=== PATIENT | female | born 1970 | race Caucasian/White ===

== ENCOUNTER 2018-01-10 00:53 | Emergency (ER) | payer OTHER ==
[2018-01-10 01:20] VITALS: BP 170/102; PULSE 90; RESP 18; TEMP 98.1; O2SAT 100
[2018-01-10 02:28] LABS: AUTOMATED NEUTROPHIL # 4.5 TH/MM3 (1.8-7.7); BASOPHIL # 0.1 TH/MM3 (0-0.2); BASOPHIL % 1.3 % (0.0-2.0); EOSINOPHIL # 0.3 TH/MM3 (0-0.4); EOSINOPHIL % 4.3 % (0.0-4.0); HEMATOCRIT 45.8 % (35.0-46.0); HEMOGLOBIN 16.4 GM/DL (11.6-15.3); LYMPH % 28.9 % (9.0-44.0); LYMPHOCYTE # 2.1 TH/MM3 (1.0-4.8); MEAN CELL VOLUME 104.3 FL (80.0-100.0); MEAN CORPUSCULAR HEMOGLOBIN 37.4 PG (27.0-34.0); MEAN CORPUSCULAR HGB CONC 35.9 % (32.0-36.0); MEAN PLATELET VOLUME 5.9 FL (7.0-11.0); MONO % 5.2 % (0.0-8.0); MONOCYTE # 0.4 TH/MM3 (0-0.9); NEUT % 60.3 % (16.0-70.0); PLATELET COUNT 358 TH/MM3 (150-450); RED BLOOD COUNT 4.39 MIL/MM3 (4.00-5.30); RED CELL DISTRIBUTION WIDTH 14.4 % (11.6-17.2); WHITE BLOOD COUNT 7.4 TH/MM3 (4.0-11.0)
[2018-01-10 02:32] LABS: ALBUMIN 4.1 GM/DL (3.4-5.0); ALKALINE PHOSPHATASE 97 U/L (45-117); ALT (GPT) 35 U/L (10-53); AST (GOT) 45 U/L (15-37); BLOOD UREA NITROGEN 5 MG/DL (7-18); CALCIUM 8.3 MG/DL (8.5-10.1); CHLORIDE 101 MEQ/L (98-107); CREATININE 0.77 MG/DL (0.50-1.00); GLOMERULAR FILTRATION RATE 80 ML/MIN (>89); GLUCOSE,RANDOM 99 MG/DL (74-106); SODIUM (NA) 133 MEQ/L (136-145); TOTAL BILIRUBIN ADULT 0.4 MG/DL (0.2-1.0); TOTAL PROTEIN 8.6 GM/DL (6.4-8.2)
[2018-01-10 02:34] LABS: ACETAMINOPHEN LESS THAN 2.0 MCG/ML (10.0-30.0)
[2018-01-10 02:54] LABS: BACTERIA, URINE OCC /hpf; BILIRUBIN, URINE NEG (NEG); BLOOD, URINE TRACE (NEG); GLUCOSE,URINE NEG (NEG); HYALINE CAST, URINE 1 /lpf (RARE); KETONE, URINE NEG (NEG); MUCUS URINE FEW /lpf (OCC); NITRITE,URINE NEG (NEG); SQUAMOUS EPITHELIAL CELL URINE 4 /hpf (0-5); URINE COLOR YELLOW (YELLW/STRAW); URINE LEUKOCYTE ESTERASE LARGE (NEG); WHITE BLOOD CELL CLUMPS MOD
[2018-01-10] MEDS ORDERED: POTA-163 PO (02:55)
[2018-01-10] MEDS ORDERED: LOSA25TA PO (02:55)
[2018-01-10] MEDS ORDERED: FURO20TA PO (02:55)
[2018-01-10] MEDS ORDERED: DIAZ2 PO (02:55)
[2018-01-10] MEDS ORDERED: CEPH-460 PO (03:15)
[2018-01-10] MEDS ORDERED: CEPHALEXIN MONOHYDRATE 500 MG CAP PO ONE (03:15)
--- NOTE | 2018-01-10 03:15 | PD ---
HPI Chief Complaint: Psychiatric Symptoms Time Seen by Provider: 02:47 Travel History International Travel<30 days: No Contact w/Intl Traveler<30days: No Traveled to known affect area: No History of Present Illness HPI Patient is a 47-year-old female presenting to the emergency department under James act for psychiatric evaluation. Per the James act report patient reported in a text message that she was "going to take a turn of pills". Patient reports that she got into an argument with her boyfriend and made that statement however she denies suicidality or previous suicide attempt. Patient further denies any depression, hallucinations, homicidal ideations. She does report a history of anxiety and hypertension. Symptom onset was sudden, symptoms are exacerbated by the argument, severity is moderate. There are no alleviating factors. Patient denies any physical pain at this time. She does endorse daily tobacco use and occasional EtOH use. PFSH Past Medical History Anxiety: Yes Heart Rhythm Problems: Yes Cardiovascular Problems: Yes Musculoskeletal: Yes ?: Not Past Surgical History Abdominal Surgery: No Body Medical Devices: BREAST IMPLANTS Cardiac Surgery: No Ear Surgery: No Endocrine Surgery: No Eye Surgery: No Genitourinary Surgery: No Gynecologic Surgery: No Hysterectomy: Yes Oral Surgery: No Thoracic Surgery: Yes (2005 BREAST IMPLANT) Other Surgery: Yes (1988 r KNEE ARTHROSCOPY, 2005 BREAST IMPLANTS) Social History Alcohol Use: Yes (WINE WITH DINNER OR SOCIAL OCCATIONS) Tobacco Use: Yes (1/2 PPD) Substance Use: No Allergies-Medications (Allergen,Severity, Reaction): Coded Allergies: shellfish derived (Unverified Allergy, Mild, Rash, 01/10/18) Reported Meds & Prescriptions Reported Meds & Active Scripts Active Reported Valium (Diazepam) 2 Mg Tab 2 Mg PO BID PRN Potassium Chloride ER (Potassium Chloride) 20 Meq Tab 20 Meq PO DAILY Furosemide 20 Mg Tab 20 Mg PO DAILY Losartan (Losartan Potassium) 25 Mg Tab 25 Mg PO DAILY Review of Systems Except as stated in HPI: all other systems reviewed are Neg Psychiatric: Positive: Anxiety, Depression, Suicidal Ideations Physical Exam Narrative GENERAL: Well-developed, well-nourished, alert female. Presenting in no acute distress. SKIN: Warm and dry. HEAD: Atraumatic. Normocephalic. EYES: Pupils equal and round. No scleral icterus. No injection or drainage. ENT: No nasal bleeding or discharge. Mucous membranes pink and moist. NECK: Trachea midline. No JVD. CARDIOVASCULAR: Regular rate and rhythm. RESPIRATORY: No accessory muscle use. Clear to auscultation. Breath sounds equal bilaterally. GASTROINTESTINAL: Abdomen soft, non-tender, nondistended. Hepatic and splenic margins not palpable. MUSCULOSKELETAL: Extremities without clubbing, cyanosis, or edema. No obvious deformities. NEUROLOGICAL: Awake and alert. No obvious cranial nerve deficits. Motor grossly within normal limits. Five out of 5 muscle strength in the arms and legs. Normal speech. PSYCHIATRIC: Depressed mood and flat affect; insight and judgment normal. Data Data Last Documented VS Vital Signs Date Time Temp Pulse Resp B/P (MAP) Pulse Ox O2 Delivery O2 Flow Rate FiO2 01/10/18 01:20 98.1 90 18 170/102 (124) 100 Orders Orders Complete Blood Count With Diff (01/10/18 00:57) Comprehensive Metabolic Panel (01/10/18 00:57) Thyroid Stimulating Hormone (01/10/18 00:57) Urinalysis - C+S If Indicated (01/10/18 00:57) Psych Screen (01/10/18 00:57) Drug Screen, Random Urine (01/10/18 00:57) Alcohol (Ethanol) (01/10/18 00:57) Salicylates (Aspirin) (01/10/18 00:57) Tylenol (Acetaminophen) (01/10/18 00:57) Urine Culture (01/10/18 01:20) Labs Laboratory Tests Test 01/10/18 00:57 01/10/18 01:20 01/10/18 01:25 Urine Opiates Screen NEG Urine Barbiturates Screen NEG Urine Amphetamines Screen NEG Urine Benzodiazepines Screen NEG Urine Cocaine Screen NEG Urine Cannabinoids Screen NEG Urine Color YELLOW Urine Turbidity HAZY Urine pH 5.0 Urine Specific [place] 1.005 Urine Protein TRACE mg/dL Urine Glucose (UA) NEG mg/dL Urine Ketones NEG mg/dL Urine Occult Blood TRACE Urine Nitrite NEG Urine Bilirubin NEG Urine Urobilinogen LESS THAN 2.0 MG/DL Urine Leukocyte Esterase LARGE Urine RBC 3 /hpf Urine WBC 37 /hpf Urine WBC Clumps MOD Urine Squamous Epithelial Cells 4 /hpf Urine Bacteria OCC /hpf Urine Hyaline Casts 1 /lpf Urine Mucus FEW /lpf Microscopic Urinalysis Comment CULTURE INDICATED White Blood Count 7.4 TH/MM3 Red Blood Count 4.39 MIL/MM3 Hemoglobin 16.4 GM/DL Hematocrit 45.8 % Mean Corpuscular Volume 104.3 FL Mean Corpuscular Hemoglobin 37.4 PG Mean Corpuscular Hemoglobin Concent 35.9 % Red Cell Distribution Width 14.4 % Platelet Count 358 TH/MM3 Mean Platelet Volume 5.9 FL Neutrophils (%) (Auto) 60.3 % Lymphocytes (%) (Auto) 28.9 % Monocytes (%) (Auto) 5.2 % Eosinophils (%) (Auto) 4.3 % Basophils (%) (Auto) 1.3 % Neutrophils # (Auto) 4.5 TH/MM3 Lymphocytes # (Auto) 2.1 TH/MM3 Monocytes # (Auto) 0.4 TH/MM3 Eosinophils # (Auto) 0.3 TH/MM3 Basophils # (Auto) 0.1 TH/MM3 CBC Comment DIFF FINAL Differential Comment Blood Urea Nitrogen 5 MG/DL Creatinine 0.77 MG/DL Random Glucose 99 MG/DL Total Protein 8.6 GM/DL Albumin 4.1 GM/DL Calcium Level 8.3 MG/DL Alkaline Phosphatase 97 U/L Aspartate Amino Transf (AST/SGOT) 45 U/L Alanine Aminotransferase (ALT/SGPT) 35 U/L Total Bilirubin 0.4 MG/DL Sodium Level 133 MEQ/L Potassium Level 3.6 MEQ/L Chloride Level 101 MEQ/L Carbon Dioxide Level 22.0 MEQ/L Anion Gap 10 MEQ/L Estimat Glomerular Filtration Rate 80 ML/MIN Thyroid Stimulating Hormone 3rd Gen 1.700 uIU/ML Salicylates Level 5.7 MG/DL Acetaminophen Level LESS THAN 2.0 MCG/ML Ethyl Alcohol Level 290 MG/DL MDM Medical Decision Making Medical Screen Exam Complete: Yes Emergency Medical Condition: Yes Interpretation(s) Laboratory Tests Test 01/10/18 00:57 01/10/18 01:20 01/10/18 01:25 Urine Opiates Screen NEG Urine Barbiturates Screen NEG Urine Amphetamines Screen NEG Urine Benzodiazepines Screen NEG Urine Cocaine Screen NEG Urine Cannabinoids Screen NEG Urine Color YELLOW Urine Turbidity HAZY Urine pH 5.0 Urine Specific [place] 1.005 Urine Protein TRACE mg/dL Urine Glucose (UA) NEG mg/dL Urine Ketones NEG mg/dL Urine Occult Blood TRACE Urine Nitrite NEG Urine Bilirubin NEG Urine Urobilinogen LESS THAN 2.0 MG/DL Urine Leukocyte Esterase LARGE Urine RBC 3 /hpf Urine WBC 37 /hpf Urine WBC Clumps MOD Urine Squamous Epithelial Cells 4 /hpf Urine Bacteria OCC /hpf Urine Hyaline Casts 1 /lpf Urine Mucus FEW /lpf Microscopic Urinalysis Comment CULTURE INDICATED White Blood Count 7.4 TH/MM3 Red Blood Count 4.39 MIL/MM3 Hemoglobin 16.4 GM/DL Hematocrit 45.8 % Mean Corpuscular Volume 104.3 FL Mean Corpuscular Hemoglobin 37.4 PG Mean Corpuscular Hemoglobin Concent 35.9 % Red Cell Distribution Width 14.4 % Platelet Count 358 TH/MM3 Mean Platelet Volume 5.9 FL Neutrophils (%) (Auto) 60.3 % Lymphocytes (%) (Auto) 28.9 % Monocytes (%) (Auto) 5.2 % Eosinophils (%) (Auto) 4.3 % Basophils (%) (Auto) 1.3 % Neutrophils # (Auto) 4.5 TH/MM3 Lymphocytes # (Auto) 2.1 TH/MM3 Monocytes # (Auto) 0.4 TH/MM3 Eosinophils # (Auto) 0.3 TH/MM3 Basophils # (Auto) 0.1 TH/MM3 CBC Comment DIFF FINAL Differential Comment Blood Urea Nitrogen 5 MG/DL Creatinine 0.77 MG/DL Random Glucose 99 MG/DL Total Protein 8.6 GM/DL Albumin 4.1 GM/DL Calcium Level 8.3 MG/DL Alkaline Phosphatase 97 U/L Aspartate Amino Transf (AST/SGOT) 45 U/L Alanine Aminotransferase (ALT/SGPT) 35 U/L Total Bilirubin 0.4 MG/DL Sodium Level 133 MEQ/L Potassium Level 3.6 MEQ/L Chloride Level 101 MEQ/L Carbon Dioxide Level 22.0 MEQ/L Anion Gap 10 MEQ/L Estimat Glomerular Filtration Rate 80 ML/MIN Thyroid Stimulating Hormone 3rd Gen 1.700 uIU/ML Salicylates Level 5.7 MG/DL Acetaminophen Level LESS THAN 2.0 MCG/ML Ethyl Alcohol Level 290 MG/DL Vital Signs Date Time Temp Pulse Resp B/P (MAP) Pulse Ox O2 Delivery O2 Flow Rate FiO2 01/10/18 01:20 98.1 90 18 170/102 (124) 100 Differential Diagnosis Suicidal ideations versus depression versus anxiety versus metabolic abnormality versus other Narrative Course Patient is a 39-year-old female presenting under James act for psychiatric evaluation after making suicidal ideations to her boyfriend. Patient's vital signs are stable. Mental health screening discussed with the patient. Psychiatric screen ordered. CBC with no acute findings Chemistry with no acute findings Alcohol level is 290 Urine drug screen is negative, acetaminophen and salicylate levels are unremarkable Urinalysis with elevated white blood cells, large leukocyte esterase, trace occult blood. Patient has reflex culture pending. Patient will be treated empirically at this time pending culture results. A prescription will be written to complete full course as outpatient. Patient is medically cleared for psychiatric evaluation at this time. Diagnosis Primary Impression: Medical clearance for psychiatric admission Additional Impression: Urinary tract infection Qualified Codes: N39.0 - Urinary tract infection, site not specified; R31.9 - Hematuria, unspecified Referrals: [facility] Primary Care Physician Patient Instructions: General Instructions, Urinary Tract Infection in Women ( ED) Additional Instructions: Complete full course of antibiotics as prescribed Return to emergency department for any new or worsening symptoms Follow up with a primary doctor Med/Other Pt SpecificInfo: Prescription(s) given Scripts Cephalexin (Keflex) 500 Mg Cap 500 MG PO Q12H for Infection, #14 CAP 0 Refills Prov: Paris Carpenter 01/10/18 Condition: Stable Paris Carpenter Jan 10, 2018 03:15
--- NOTE | 2018-01-10 09:40 | PD.PSY.CON ---
Provisional Diagnosis Admission Date Date of consultation 01/10/2018 [place] I. 1. Alcohol abuse with intoxication, intoxication now resolved [place] II. Deferred History of Present Illness Service Psychiatry Consult Requested By Emergency department Reason for Consult James act Primary Care Physician Celso Hook MD HPI Ms. Alvarado is a 47-year-old female with a reported history of depression who presents under a James act by law enforcement alleging that the patient sent text messages threatening to take a bunch of pills. Of note, patient's alcohol level on presentation here was 290. Reviewing the electronic medical record, I see no previous psychiatric contact within our system. Patient seen and examined. Chart reviewed. Case discussed with nursing staff. On my examination this morning, the patient is clinically sober. She relates that she has just started dating a man by the name of Lee who stayed over at her house Thursday evening. He left to go spend time with friends on Thursday, leaving the patient to do his laundry, and then he texted her and said that he wasn't coming home as had been planned. Patient had been drinking, she tells me , and in a fit of pique does admit to sending the text message threatening to overdose. The patient notes that she has no pills in her house on which she could even overdose. She says "I was upset, trying to express myself." She denies any genuine suicidal ideation at the time. She denies any suicidal or homicidal ideation, intent or plan on direct questioning now and contracts for safety. She denies any issues with low mood, denies any hopelessness, worthlessness or morbid guilt. Sleep and appetite are fair. No other depressive symptoms. I can elicit no hypomanic or manic symptoms. She denies any audiovisual hallucinations. I can elicit no delusional beliefs. No PTSD symptoms reported. The remainder of the psychiatric ROS is negative. Patient has no physical complaints presently. Past psychiatric history: Patient reports a history of depression with onset after attempted murder by her 9 years ago. 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 She denies any history of psychiatric admissions. Denies any history of suicide attempts. Denies any history of violent behavior. Family history: The patient denies any family history of serious mental illness or suicide. Chemical dependency history: The patient reports that she drinks on weekends. She has had DUIs in the past. Denies any blackouts, DTs or seizures. Social history: The patient is . She has 5 pets at home including 2 dogs and 3 cats. She has a bachelor's degree and works as an b2b sales executive for [employer]. She denies any history. Denies any legal history. Denies any access to guns or firearms. She is a Quaker. With patient's permission I have obtained collateral information from her friend Vee Parson at [phone]. Vee notes that she has known the patient for about 40 years. She has absolutely no concerns about the patient being a risk of harm to herself or others at this point and feels comfortable with the patient being discharged from the ED today. She has never known the patient to be suicidal or violent. Review of Systems Except as stated in HPI: all other systems reviewed are Neg Past Family Social History Coded Allergies: shellfish derived (Unverified Allergy, Mild, Rash, 01/10/18) Past Medical History See electronic medical record Active Scripts Cephalexin (Keflex) 500 Mg Cap, 500 MG PO Q12H for Infection, #14 CAP 0 Refills Prov:Paris Carpenter Fina MIRANDA 01/10/18 Reported Medications Diazepam (Valium) 2 Mg Tab, 2 MG PO BID Y for ANXIETY, TAB 0 Refills 01/10/18 Potassium Chloride ER (Potassium Chloride ER) 20 Meq Tab, 20 MEQ PO DAILY for Electrolyte Replacement, #30 TAB 0 Refills 01/10/18 Furosemide (Furosemide) 20 Mg Tab, 20 MG PO DAILY, #30 TAB 0 Refills 01/10/18 Losartan (Losartan) 25 Mg Tab, 25 MG PO DAILY for Blood Pressure Management, # 30 TAB 0 Refills 01/10/18 Physical Exam Physical exam completed by ED provider. On my examination today, the patient appears to be in no acute physical distress. No motor abnormalities noted. No signs of intoxication or withdrawal noted. Labs and vitals reviewed: Vital Signs Vital Signs Date Time Temp Pulse Resp B/P (MAP) Pulse Ox O2 Delivery O2 Flow Rate FiO2 01/10/18 01:20 98.1 90 18 170/102 (124) 100 Lab Results Test 01/10/18 00:57 01/10/18 01:20 2/25/18 01:25 Urine Opiates Screen NEG Urine Barbiturates Screen NEG Urine Amphetamines Screen NEG Urine Benzodiazepines Screen NEG Urine Cocaine Screen NEG Urine Cannabinoids Screen NEG Urine Color YELLOW Urine Turbidity HAZY Urine pH 5.0 Urine Specific [place] 1.005 Urine Protein TRACE mg/dL Urine Glucose (UA) NEG mg/dL Urine Ketones NEG mg/dL Urine Occult Blood TRACE Urine Nitrite NEG Urine Bilirubin NEG Urine Urobilinogen LESS THAN 2.0 MG/DL Urine Leukocyte Esterase LARGE Urine RBC 3 /hpf Urine WBC 37 /hpf Urine WBC Clumps MOD Urine Squamous Epithelial Cells 4 /hpf Urine Bacteria OCC /hpf Urine Hyaline Casts 1 /lpf Urine Mucus FEW /lpf Microscopic Urinalysis Comment CULTURE INDICATED White Blood Count 7.4 TH/MM3 Red Blood Count 4.39 MIL/MM3 Hemoglobin 16.4 GM/DL Hematocrit 45.8 % Mean Corpuscular Volume 104.3 FL Mean Corpuscular Hemoglobin 37.4 PG Mean Corpuscular Hemoglobin Concent 35.9 % Red Cell Distribution Width 14.4 % Platelet Count 358 TH/MM3 Mean Platelet Volume 5.9 FL Neutrophils (%) (Auto) 60.3 % Lymphocytes (%) (Auto) 28.9 % Monocytes (%) (Auto) 5.2 % Eosinophils (%) (Auto) 4.3 % Basophils (%) (Auto) 1.3 % Neutrophils # (Auto) 4.5 TH/MM3 Lymphocytes # (Auto) 2.1 TH/MM3 Monocytes # (Auto) 0.4 TH/MM3 Eosinophils # (Auto) 0.3 TH/MM3 Basophils # (Auto) 0.1 TH/MM3 CBC Comment DIFF FINAL Differential Comment Blood Urea Nitrogen 5 MG/DL Creatinine 0.77 MG/DL Random Glucose 99 MG/DL Total Protein 8.6 GM/DL Albumin 4.1 GM/DL Calcium Level 8.3 MG/DL Alkaline Phosphatase 97 U/L Aspartate Amino Transf (AST/SGOT) 45 U/L Alanine Aminotransferase (ALT/SGPT) 35 U/L Total Bilirubin 0.4 MG/DL Sodium Level 133 MEQ/L Potassium Level 3.6 MEQ/L Chloride Level 101 MEQ/L Carbon Dioxide Level 22.0 MEQ/L Anion Gap 10 MEQ/L Estimat Glomerular Filtration Rate 80 ML/MIN Thyroid Stimulating Hormone 3rd Gen 1.700 uIU/ML Salicylates Level 5.7 MG/DL Acetaminophen Level LESS THAN 2.0 MCG/ML Ethyl Alcohol Level 290 MG/DL Date/Time Source Procedure Growth Status 01/10/18 01:20 Urine Clean Catch Urine Culture Pending Received Mental Status Examination Appearance: Appropriate Consciousness: Alert Orientation: x4 Motor Activity: Normal gait Speech: Unremarkable Language: Adequate Fund of Knowledge: Adequate Attention and Concentration: Adequate Memory: Unremarkable Mood: Appropriate Affect: Appropriate Thought Process & Associations: Intact, Logical, Goal directed, Linear Thought Content: Appropriate Hallucination Type: None Delusion Type: None Suicidal Ideation: No Suicidal Plan: No Suicidal Intention: No Homicidal Ideation: No Homicidal Plan: No Homicidal Intention: No Insight: Fair Judgment: Adequate (fair) Assessment & Plan Problem List: (1) Alcohol abuse with intoxication ICD Codes: F10.129 - Alcohol abuse with intoxication, unspecified Assessment & Plan 47-year-old female with psychiatric history as detailed above who was brought into the ED under a James act by law enforcement. Patient was intoxicated and sent text messages to a male partner who had angered her by staying out with his friends. Presently, the patient denies any suicidal or homicidal ideation. She contracts for safety. There is no evidence of any unstable mental illness as defined under the James act in this patient at this time. She appears to be attending to her basic needs. I have obtained reassuring collateral from a friend. Patient does not presently meet the James act criteria. I have lifted the James act. I have recommended outpatient chemical dependency and psychiatric follow-up. I have recommended that the patient abstain from substances of abuse. I have counseled the patient regarding warning signs for need to return to the psychiatric emergency room is part of a general safety plan. Patient is psychiatrically clear for discharge from the ED. Request HC Surrog/Guard Advoc?: No Partha Marshall MD Jan 10, 2018 09:39
--- NOTE | 2018-01-10 09:46 | PD ---
Physical Exam Time Seen by Provider: 09:[address] Alonso has evaluated the patient, lifted James act and cleared the patient for discharge. Data Data Last Documented VS Vital Signs Date Time Temp Pulse Resp B/P (MAP) Pulse Ox O2 Delivery O2 Flow Rate FiO2 01/10/18 01:20 98.1 90 18 170/102 (124) 100 Orders Orders Complete Blood Count With Diff (01/10/18 00:57) Comprehensive Metabolic Panel (01/10/18 00:57) Thyroid Stimulating Hormone (01/10/18 00:57) Urinalysis - C+S If Indicated (01/10/18 00:57) Psych Screen (01/10/18 00:57) Drug Screen, Random Urine (01/10/18 00:57) Alcohol (Ethanol) (01/10/18 00:57) Salicylates (Aspirin) (01/10/18 00:57) Tylenol (Acetaminophen) (01/10/18 00:57) Urine Culture (01/10/18 01:20) Cephalexin (Keflex) (01/10/18 03:15) Diet Regular Basic (01/10/18 Breakfast) Labs Laboratory Tests Test 01/10/18 00:57 01/10/18 01:20 01/10/18 01:25 Urine Opiates Screen NEG Urine Barbiturates Screen NEG Urine Amphetamines Screen NEG Urine Benzodiazepines Screen NEG Urine Cocaine Screen NEG Urine Cannabinoids Screen NEG Urine Color YELLOW Urine Turbidity HAZY Urine pH 5.0 Urine Specific [place] 1.005 Urine Protein TRACE mg/dL Urine Glucose (UA) NEG mg/dL Urine Ketones NEG mg/dL Urine Occult Blood TRACE Urine Nitrite NEG Urine Bilirubin NEG Urine Urobilinogen LESS THAN 2.0 MG/DL Urine Leukocyte Esterase LARGE Urine RBC 3 /hpf Urine WBC 37 /hpf Urine WBC Clumps MOD Urine Squamous Epithelial Cells 4 /hpf Urine Bacteria OCC /hpf Urine Hyaline Casts 1 /lpf Urine Mucus FEW /lpf Microscopic Urinalysis Comment CULTURE INDICATED White Blood Count 7.4 TH/MM3 Red Blood Count 4.39 MIL/MM3 Hemoglobin 16.4 GM/DL Hematocrit 45.8 % Mean Corpuscular Volume 104.3 FL Mean Corpuscular Hemoglobin 37.4 PG Mean Corpuscular Hemoglobin Concent 35.9 % Red Cell Distribution Width 14.4 % Platelet Count 358 TH/MM3 Mean Platelet Volume 5.9 FL Neutrophils (%) (Auto) 60.3 % Lymphocytes (%) (Auto) 28.9 % Monocytes (%) (Auto) 5.2 % Eosinophils (%) (Auto) 4.3 % Basophils (%) (Auto) 1.3 % Neutrophils # (Auto) 4.5 TH/MM3 Lymphocytes # (Auto) 2.1 TH/MM3 Monocytes # (Auto) 0.4 TH/MM3 Eosinophils # (Auto) 0.3 TH/MM3 Basophils # (Auto) 0.1 TH/MM3 CBC Comment DIFF FINAL Differential Comment Blood Urea Nitrogen 5 MG/DL Creatinine 0.77 MG/DL Random Glucose 99 MG/DL Total Protein 8.6 GM/DL Albumin 4.1 GM/DL Calcium Level 8.3 MG/DL Alkaline Phosphatase 97 U/L Aspartate Amino Transf (AST/SGOT) 45 U/L Alanine Aminotransferase (ALT/SGPT) 35 U/L Total Bilirubin 0.4 MG/DL Sodium Level 133 MEQ/L Potassium Level 3.6 MEQ/L Chloride Level 101 MEQ/L Carbon Dioxide Level 22.0 MEQ/L Anion Gap 10 MEQ/L Estimat Glomerular Filtration Rate 80 ML/MIN Thyroid Stimulating Hormone 3rd Gen 1.700 uIU/ML Salicylates Level 5.7 MG/DL Acetaminophen Level LESS THAN 2.0 MCG/ML Ethyl Alcohol Level 290 MG/DL MDM Supervised Visit with [facility]: No Narrative Course Dr. Alonso has evaluated the patient, lifted [place] act and cleared the patient for discharge. Patient contracts safety. Denies suicidal or homicidal ideations. Patient will be provided community resource packet to [facility] for follow-up. Has friends and family for support. Patient was medically cleared by alternate provider prior to psych screening. Patient has been evaluated by psychiatry and and is now cleared for discharge. Diagnosis Primary Impression: Urinary tract infection Qualified Codes: N39.0 - Urinary tract infection, site not specified; R31.9 - Hematuria, unspecified Additional Impression: Alcohol intoxication Qualified Codes: F10.929 - Alcohol use, unspecified with intoxication, unspecified Referrals: [facility] Primary Care Physician Patient Instructions: Abuse of Alcohol (ED), Alcohol Dependence (ED), Alcohol Intoxication (ED), General Instructions, Urinary Tract Infection in Women (ED) Departure Forms: Tests/Procedures Additional Instruction: Complete full course of antibiotics as prescribed Return to emergency department for any new or worsening symptoms Follow up with a primary doctor Contract safety to your self and others Stop drinking alcohol Follow-up in the community for community support, such as Alcoholics Anonymous Follow-up with psychiatry Follow-up with primary care provider Follow-up with Frederic Perry Return to the emergency department immediately with worsening of symptoms Med/Other Pt SpecificInfo: Prescription(s) given Scripts Cephalexin (Keflex) 500 Mg Cap 500 MG PO Q12H for Infection, #14 CAP 0 Refills Prov: Paris Carpenter 01/10/18 Disposition: 01 DISCHARGE HOME Condition: Stable Cherie Santana Jan 10, 2018 09:46
== END 2018-01-10 10:27 | disposition home or self-care (01) ==
LOC: NEDAMB 00:53 → NEPD 10:27
DX: F10.129 Alcohol abuse with intoxication, unspecified (principal); Y90.8 Blood alcohol level of 240 mg/100 ml or more; N39.0 Urinary tract infection, site not specified; R31.9 Hematuria, unspecified; B96.20 Unspecified Escherichia coli [E. coli] as the cause of diseases classified elsewhere; I10 Essential (primary) hypertension; F41.9 Anxiety disorder, unspecified; F32.9 Major depressive disorder, single episode, unspecified; F17.200 Nicotine dependence, unspecified, uncomplicated
CPT/HCPCS: 80053; 80307; 81001; 84443; 85025; 87077; 87086; 87186; 99284